=== PATIENT | female | born 1955 | race Caucasian/White ===

== ENCOUNTER 2016-08-10 16:00 | Observation (INO) | payer BC ==
--- NOTE | ~2016-08-10 | HP ---
History And Physical [facility] [id number] [place]. [address] NAME: MARYBETH CALLAHAN : 51 STATUS : ADM Sabra PAT#: [id number] AGE: 61 ADM/REG DATE : 08/10/16 MR#: [id number] REPORT SERV DATE: 08/11/16 DICTATED BY: MICHELLE HILL DATE: 08/11/16 REPORT STATUS : Draft TRANSCRIBED BY: MODL DATE: 08/11/16 DATE OF ADMISSION: 08/10/2016 SUPERVISOR BORDER DEPARTMENT: Vaibhav Zambrano M.D. CHIEF COMPLAINT: Fatigue, chest pain, palpitations, and headache. HISTORY OF PRESENT ILLNESS: Very pleasant, 61-year-old, white female with identified nonobstructive CAD by cath on 12/2014 with identified 30% proximal LAD lesion. At that time, the patient states that she has felt fatigued with loss of energy for several weeks. On 08/10 around 1000 hours, she states she did not feel good. She felt her heart was out of sync and skipping beats with an associated headache. She checked her blood pressure several times and she reports readings of 160-180/120+. She states she was flushed. Her heart rate was approximately 140 beats per minute per her monitor and radial checking. She reports associated shortness of breath, nausea, lightheadedness. Denies diaphoresis or belching. She did check her blood pressure a third time and just received an error meant message although her machine worked fine on her . She described some chest tightness that radiated toward her back. She was seen at [facility] and it was recommended that she come here for further evaluation and treatment. She was sent here via ambulance. No medications were provided en route. At its most intense, she rates her chest pain a 5/10. At time of interview in the [facility], she is pain free. She states the episode lasted a few minutes in duration. She did take Xanax and Phenergan prior to going to the clinic which seemed to help somewhat. She also reports some occasional finger tingling and numbness also in her feet. Her reports one week ago she had a near syncopal episode while sitting in a chair. There is seemingly no reported exertional component. The patient denies any recent stress argument or a confrontational event. The patient denies any personal history of myocardial infarction, stroke, DVT, or pulmonary embolus. The patient denies any recent fever or chills. Describes palpitations for several years. Consumes minimal caffeine. No clear syncopal event. Denies PND or orthopnea. PAST MEDICAL HISTORY: 1. Hypertension. 2. Dyslipidemia, intolerant to pravastatin. 3. Anxiety. 4. Fibromyalgia. 5. Obesity. 6. Positive family history for early CAD. SURGICAL HISTORY: 1. Right total knee. 2. Appendectomy. 3. Tonsillectomy. 4. Cholecystectomy. 5. Hysterectomy. 6. Hiatal hernia repair. History And Physical [address] [place]. [address] NAME: MARYBETH CALLAHAN : 51 STATUS : ADM Sabra PAT#: [id number] AGE: 61 ADM/REG DATE : 08/10/16 MR#: [id number] REPORT SERV DATE: 08/11/16 DICTATED BY: MICHELLE HILL DATE: 08/11/16 REPORT STATUS : Draft TRANSCRIBED BY: RONNELL DATE: 08/11/16 7. Bilateral carpal tunnel. SOCIAL HISTORY: She is with two children. She is disabled. Does not have a structured exercise routine. Denies tobacco, alcohol, or illicit's. FAMILY HISTORY: Brother with CAD and CABG at 42, at 45. Sister with SC and stents in her 40s, remains alive at 58. Mother at 39 in a motor vehicle accident. Father at 38 of cirrhosis. REVIEW OF SYSTEMS: Fourteen-point review of systems performed, significant for HPI including home or clinic blood pressures of 110/60. Otherwise, complete review of systems obtained and negative. ALLERGIES: IV DYE, NAUSEA AND VOMITING, RASH. PENICILLIN, RASH. SULFA, RASH. IODINE, RASH. CODEINE, RASH. ASPIRIN, NAUSEA, VOMITING, RASH. PRAVASTATIN INTOLERANT. HOME MEDICATIONS: Xanax 0.5 mg every six hours, Benadryl 25 p.r.n., lisinopril/HCTZ 10/12.5 daily, Phenergan 12.5 mg p.r.n. PHYSICAL EXAMINATION: VITAL SIGNS: Bilateral blood pressures on arrival, right 122/64, left 121/57, this morning 102/62, pulse 59, respirations 20, temperature 98.0, O2 saturation 97% on room air, height 5 feet 5 inches, weight 163 pounds, BMI 27. GENERAL: Cooperative, in no apparent distress. HEENT: Pupils 2 mm, sclera nonicteric. Nares patent. Moist mucous membranes. No xanthelasma. NECK: Trachea midline, no thyromegaly. No JVD. No bruits. LYMPH: No cervical lymphadenopathy. No supraclavicular lymphadenopathy. RESPIRATORY: Unlabored respirations. Breath sounds clear bilaterally to posterior auscultation. No wheezes or rhonchi. CARDIOVASCULAR: Regular rate. No murmur, rub or gallop appreciated. Extremities without edema. Pulses 2+ bilaterally. ABDOMEN: Soft, nontender, nondistended, normal bowel sounds auscultated throughout. No organomegaly. SKIN: Warm, dry extremities. No pallor, or cyanosis. PSYCHIATRIC: Appropriate affect. Alert, oriented x3. LABORATORY DATA: Troponin less than 0.02 x3. Potassium 3.6, BUN 9, creatinine 0.49, glucose 86, magnesium 2.0. WBC 8.8, hemoglobin 14.7, hematocrit 42.4, platelet count 269,000. EKG, sinus rhythm with occasional PAC (no ectopy on overnight telemetry). MPI, 11/2014: No ischemia. Cath, 12/2014 ([facility]): Nonobstructive CAD with 30% proximal LAD lesion, EF 60%. ASSESSMENT AND PLAN: 1. Atypical chest pain. The patient has been observed in the CPOU overnight to rule out History And Physical [address] [address] NAME: MARYBETH CALLAHAN : 51 STATUS : ADM Sabra PAT#: [id number] AGE: 61 ADM/REG DATE : 08/10/16 MR#: [id number] REPORT SERV DATE: 08/11/16 DICTATED BY: MICHELLE HILL DATE: 08/11/16 REPORT STATUS : Draft TRANSCRIBED BY: RONNELL DATE: 08/11/16 myocardial infarction with serial enzymes and serial EKGs and held n.p.o. We will proceed with MPI today. The patient will be discharged home if low risk, no ischemia. If anything suggestive of ischemia, Cardiology referral will be initiated. Otherwise, patient will be asked to follow up with her PCP and Dr. Zambrano as appropriate. 2. Palpitations. We will check a TSH, a 48-hour Holter at discharge. Close Cardiology followup. 3. Near syncopal event. Check echocardiogram with close Cardiology followup. 4. Ongoing headache. We will check a CT of the brain without contrast. CARMITA/RONNELL Michelle Hill, MSN, SPECIALTY MOLDER-BC / [id number] CC: GUICHO Salas, SPECIALTY MOLDER-BC DIRK DUNHAM M.D.
[~2016-08-10 16:00] MED LIST: AMIT25 PO; BEN25 PO; COQ10100 MG OR; DOLOPHINE10 MG PO; DYAZIDE1 CAP PO; FLEX PO; HYDROCHLOROTHIAZIDE PO; IBU400 PO; LOP25 PO; LUNESTA3 MG PO; MAX25 PO; MCZ25 PO; PEP20 PO; PERCOCET1 TA2 PO; PR25 PO; PRAV10 PO; PRED50B PO; PRILO PO; PRIN20 PO; PROAIR HFA INH; TRIAMTERENE PO; X5 PO; ZESTORETIC PO; ZESTORETIC1 TAB PO; ZESTRIL10 MG PO
[2016-08-10 17:05] LABS: BASOPHILS ABSOLUTE 0.09 10/3/uL (0.0-0.16); EOSINOPHILS 1.8 %; EOSINOPHILS ABSOLUTE 0.16 10/3/uL (0.0-0.53); HEMATOCRIT 42.4 % (36.0-48.0); HEMOGLOBIN 14.7 g/dL (12.0-16.0); IMMATURE GRANULOCYTES 0.2 %; IMMATURE GRANULOCYTES ABSOLUTE 0.02 10/3/uL (0.0-0.11); LYMPHOCYTES 36.7 %; LYMPHOCYTES ABSOLUTE 3.24 10/3/uL (0.67-4.30); MEAN CORPUS HGB CONC 34.7 g/dL (32.0-36.0); MEAN CORPUSCULAR HEMOGLOB 30.5 pg (26.0-34.0); MEAN PLATELET VOLUME 10.5 fL (9.2-13.0); MONOCYTES 6.8 %; NEUTROPHILS 53.5 %; NEUTROPHILS ABSOLUTE 4.71 10/3/uL (2.02-8.40); RBC DISTRIBUTION WIDTH 13.3 % (12.0-16.0); RED CELL COUNT 4.82 10/6/uL (4.0-5.6); WHITE BLOOD CELLS 8.8 10/3/uL (4.5-10.5)
[2016-08-10 17:06] LABS: MANUAL DIFF NO %; PLATELET COUNT 269 10/3/uL (150-400)
[2016-08-10 17:10] LABS: INTERNATIONAL NORMAL RATI 1.2 UNITS (-); PARTIAL THROMBO TIME 27.8 SEC (22.5-37.2); PROTIME (NOT ORD) 14.7 SEC (12.0-14.5)
[2016-08-10 17:19] LABS: CALCIUM, SERUM 8.5 MG/DL (8.5-10.4); CHEST PAIN PROFILE TAT 0 Hrs 20 Mins; CHLORIDE, SERUM 111 MMOL/L (96-112); CO2 (CARBON DIOXIDE) 25 MMOL/L (24-34); CREATININE 0.49 MG/DL (0.55-1.02); GFR AFRICAN AMERICAN 120 ML/MIN (>=60); GFR NON AFRICAN AMERICAN 104 ML/MIN (>=60); POTASSIUM, SERUM 3.6 MMOL/L (3.5-5.3); SODIUM, SERUM 145 MMOL/L (135-148); TROPONIN I <0.02 NG/ML (<0.05)
[2016-08-10 17:20] LABS: BUN (BLOOD UREA NITROGEN) 9 MG/DL (6-23); GLUCOSE, SERUM 86 MG/DL (60-99)
[2016-08-10] MEDS ORDERED: PRINZIDE1 TAB PO (18:00)
[2016-08-10] MEDS ORDERED: PR12.5 PO (18:01)
[2016-08-10] MEDS ORDERED: X5 PO (18:01)
[2016-08-10] MEDS ORDERED: BEN25 PO (18:02)
[2016-08-10 23:47] LABS: TROPONIN I <0.02 NG/ML (<0.05)
[2016-08-11 11:49] LABS: FREE T4 0.97 NG/DL (0.76-1.46); ULTRASENSITIVE TSH 0.986 MCIU/ML (0.358-3.740)
== END 2016-08-11 18:00 | disposition home or self-care (01) ==
LOC: ER 16:00 → CDU1 18:07
PROVIDERS: Clinical Nurse Specialist; Hospitalist
DX: R07.89 Other chest pain (principal); R00.2 Palpitations; R51 Headache; I10 Essential (primary) hypertension; E78.5 Hyperlipidemia, unspecified; F41.9 Anxiety disorder, unspecified; M79.7 Fibromyalgia; E66.9 Obesity, unspecified; Z90.49 Acquired absence of other specified parts of digestive tract; Z90.710 Acquired absence of both cervix and uterus; Z90.89 Acquired absence of other organs; Z98.890 Other specified postprocedural states; Z88.0 Allergy status to penicillin; Z88.8 Allergy status to other drugs, medicaments and biological substances; Z88.5 Allergy status to narcotic agent
CPT/HCPCS: 70450; 71010; 78452; 80048; 83735; 84439; 84443; 84484; 85025; 85610; 85730; 93005; 93017; 93225; 96374; 99285; A9270-GY; A9502; C8929; G0378; J0153; Q9957